=== PATIENT | female | born 1970 | race Two or more races ===

== ENCOUNTER 2016-12-02 22:54 | Emergency (ER) | payer OTHER ==
[~2016-12-02] VITALS: Ht 157.5 cm; Wt 69.6 kg
[2016-12-02] MEDS ORDERED: ONDANSETRON 2MG/ML, 2ML IVPush ONE (23:30)
[2016-12-02] MEDS ORDERED: SODIUM CHLORIDE FLUSH 10ML SYR IVF ONE (23:30)
[2016-12-02] MEDS ORDERED: SODIUM CHLORIDE 0.9% 1,000ML IVBOLUS ONE (23:30)
[2016-12-02 23:48] LABS: HEMATOCRIT 38.3 % (34.6-47.8); HEMOGLOBIN 12.8 g/dL (11.7-16.4); WHITE BLOOD COUNT 9.1 x10^3/uL (3.4-10)
[2016-12-02 23:59] LABS: BLOOD UREA NITROGEN 20 mg/dL (7-18)
[2016-12-03] MEDS ORDERED: ONDANSETRON 2MG/ML, 2ML ONE (00:09)
[2016-12-03] MEDS ORDERED: KETOROLAC 30 MG/1 ML IVPush ONE (00:30)
[2016-12-03] MEDS ORDERED: HYDROcodone/APAP 5/325 TABLET PO ONE (00:30)
[2016-12-03] MEDS ORDERED: KETOROLAC 30 MG/1 ML ONE (00:31)
[2016-12-03 00:35] VITALS: BP 109/76
[2016-12-03] MEDS ORDERED: HYDROcodone/APAP 5/325 TABLET ONE (00:47)
== END 2016-12-03 00:58 | disposition home or self-care (01) ==
LOC: ED 23:59
DX: R42 Dizziness and giddiness (principal); E86.0 Dehydration
CPT/HCPCS: 36415; 80048; 82040; 85025; 93005; 96361; 96374; 96375; 99285; J1885; J2405; J7030